=== PATIENT | female | born 1975 | race Caucasian/White ===

== ENCOUNTER 2016-10-04 11:29 | Emergency (ER) | payer OTHER ==
[~2016-10-04] VITALS: Ht 180.3 cm; Wt 104.5 kg
[2016-10-04] MEDS ORDERED: HYDR4TAB4 PO (11:44)
[2016-10-04 14:16] VITALS: BP 122/79
== END 2016-10-04 14:34 | disposition home or self-care (01) ==
LOC: MERGE 11:30 → EMS 11:30
DX: S89.91XA Unspecified injury of right lower leg, initial encounter (principal); F12.90 Cannabis use, unspecified, uncomplicated; F11.90 Opioid use, unspecified, uncomplicated; W01.0XXA Fall on same level from slipping, tripping and stumbling without subsequent striking against object, initial encounter; Y93.89 Activity, other specified; Y92.89 Other specified places as the place of occurrence of the external cause; Y99.8 Other external cause status
CPT/HCPCS: 99284

== ENCOUNTER 2016-10-30 17:09 | Emergency (ER) | payer OTHER ==
[~2016-10-30] VITALS: Ht 165.1 cm; Wt 104.5 kg
[~2016-10-30 17:09] MED LIST: HYDR4TAB4 PO
[2016-10-30 19:44] VITALS: BP 134/93
== END 2016-10-30 19:44 | disposition home or self-care (01) ==
LOC: MERGE 17:10 → EMS 17:10
DX: S83.91XA Sprain of unspecified site of right knee, initial encounter (principal); F11.90 Opioid use, unspecified, uncomplicated; F12.90 Cannabis use, unspecified, uncomplicated; F17.200 Nicotine dependence, unspecified, uncomplicated; X58.XXXA Exposure to other specified factors, initial encounter; Y93.89 Activity, other specified; Y92.89 Other specified places as the place of occurrence of the external cause; Y99.8 Other external cause status
CPT/HCPCS: 29505; 99284

== ENCOUNTER 2016-11-15 00:03 | Inpatient (IN) | payer MEDICARE, MEDICAID ==
[~2016-11-15] VITALS: Ht 175.3 cm; Wt 96.2 kg
[2016-11-15] MEDS ORDERED: HYDR2 PO (00:32)
[2016-11-15 00:46] LABS: BASOPHILS % (AUTO) 0.3 % (0.0-2.0); EOSINOPHILS % (AUTO) 0.5 % (1.0-6.0); HEMATOCRIT 47.8 % (36-46); HEMOGLOBIN 15.3 g/dL (12.0-16.0); LYMPHOCYTES # (AUTO) 1.7 K/uL (1.0-4.8); LYMPHOCYTES % (AUTO) 15.6 % (22.0-44.0); MEAN CORPUSCULAR HEMOGLOBIN 25.7 pg (26.0-34.0); MEAN CORPUSCULAR VOLUME 80 fL (80-100); MONOCYTES # (AUTO) 0.8 K/uL (0.1-1.0); MONOCYTES % (AUTO) 7.5 % (2.0-9.0); NEUTROPHILS # (AUTO) 8.4 K/uL (1.8-7.7); NEUTROPHILS % (AUTO) 76.1 % (40.0-70.0); PLATELET COUNT (AUTO) 244 K/uL (150-450); RED BLOOD CELL COUNT(AUTO) 5.97 MIL/uL (4.00-5.20); RED CELL DISTRIBUTION WIDTH 14.4 % (11.5-14.5)
[2016-11-15 00:48] LABS: ANION GAP 15 mmol/L (8-16); CALCIUM, TOTAL 9.1 mg/dL (8.8-10.5); CARBON DIOXIDE 26 mmol/L (22-29); CHLORIDE 101 mmol/L (98-107); CREATININE 0.98 mg/dL (0.60-1.30); GLOMERULAR FILTR. RATE CALC > 60 mL/min (>60); POTASSIUM 3.2 mmol/L (3.5-5.1); SODIUM SERUM 142 mmol/L (136-145); UREA NITROGEN, BLOOD 5 mg/dL (7-18)
[2016-11-15 00:54] LABS: ALANINE AMINOTRANSFERASE 15 U/L (12-78); ALBUMIN 4.1 g/dL (3.4-5.0); ASPARTATE AMINOTRANSFERASE 15 U/L (15-37); BILIRUBIN,TOTAL 0.6 mg/dL (0.1-1.0); TOTAL PROTEIN, SERUM 8.1 g/dL (6.4-8.2)
[2016-11-15] MEDS ORDERED: LORazepam 2 MG/ML VIAL IM ONE ×2 (01:30→03:15)
[2016-11-15] MEDS ORDERED: POTASSIUM CHLORIDE 20 MEQ ER TABLET PO ONE (01:30)
[2016-11-15] MEDS ORDERED: HALOPERIDOL LACTATE 5 MG/ML VIAL IM ONE (01:30)
[2016-11-15] MEDS ORDERED: PERTUSS(ACELL),DIPH,TET VAC/PF 0.5 ML VIAL IM ONE (02:00)
[2016-11-15] MEDS ORDERED: DiphenhydrAMINE HCL 50 MG/ML VIAL IM ONE (03:00)
[2016-11-15] MEDS ORDERED: ZOLPIDEM TARTRATE 10 MG TABLET PO PRN (03:45)
[2016-11-15 03:58] LABS: ADD UA MICROSCOPIC YES; APPEARANCE,URINE SLIGHTLY CLOUDY (CLEAR); GLUCOSE, URINE (UA) NEGATIVE (NEGATIVE); KETONES,URINE 40 mg/dL (NEGATIVE); LEUKOCYTE ESTERASE ,URINE TRACE (NEGATIVE); OCCULT BLOOD,URINE SMALL (NEGATIVE); PROTEIN,URINE SEE CONFIRM (NEGATIVE)
[2016-11-15 04:09] LABS: SULFOSALICYLIC ACID,URINE 2+ (Negative); WBC,URINE 0-2 /HPF (0-5)
[2016-11-15 04:10] LABS: FINE GRANULAR CASTS,URINE 0-2 /LPF (None Seen)
[2016-11-15] MEDS: HALOPERIDOL 5 MG TABLET PO PRN (08:40)
[2016-11-15] MEDS: LORazepam 2 MG TABLET PO PRN (08:40)
[2016-11-15] MEDS ORDERED: MAG HYDROX/AL HYDROX/SIMETH ES 30 ML SUSPENSION UDCUP PO PRN (09:00)
[2016-11-15] MEDS ORDERED: BACITRACIN 28.4 GM OINTMENT TP PRN (09:00)
[2016-11-15] MEDS ORDERED: ALBUTEROL SULFATE HFA 90 MCG/PUFF 8 GM INHALER IH PRN (09:00)
[2016-11-15] MEDS ORDERED: ACETAMINOPHEN 325 MG TABLET PO PRN (09:00)
[2016-11-15] MEDS ORDERED: CloNIDine HCL 0.1 MG TABLET PO PRN (09:00)
[2016-11-15] MEDS ORDERED: LOPERAMIDE HCL 2 MG CAPSULE PO PRN (09:00)
[2016-11-15] MEDS ORDERED: ONDANSETRON HCL 4 MG TABLET PO PRN (09:00)
[2016-11-15] MEDS ORDERED: PETROLATUM,WHITE 71 GM JELLY TP PRN (09:00)
[2016-11-15] MEDS ORDERED: MAGNESIUM HYDROXIDE SUSPENSION 30 ML UDCUP PO PRN (09:00)
[2016-11-15] MEDS ORDERED: CIPROFLOXACIN HCL 250 MG TABLET PO SCH (09:00)
[2016-11-15] MEDS ORDERED: BENZOCAINE/MENTHOL LOZENGE MM PRN (09:00)
[2016-11-15 10:00] VITALS: BP 125/71
[2016-11-15] MEDS ORDERED: HYDR4 PO (11:05)
[2016-11-15] MEDS: BACITRACIN 28.4 GM OINTMENT TP SCH ×2 (13:10→17:01)
[2016-11-15] MEDS: NYSTATIN 15 GM POWDER BOTTLE TP SCH ×2 (13:37→17:01)
[2016-11-15 16:07] VITALS: BP 123/99
[2016-11-15] MEDS: CIPROFLOXACIN HCL 500 MG TABLET PO SCH (17:00)
[2016-11-16 04:25] VITALS: BP 140/93
[2016-11-16] MEDS: IBUPROFEN 600 MG TABLET PO PRN (04:26)
[2016-11-16 08:42] VITALS: BP 138/80
[2016-11-16] MEDS: CIPROFLOXACIN HCL 500 MG TABLET PO SCH ×2 (09:42→15:53)
[2016-11-16] MEDS: BACITRACIN 28.4 GM OINTMENT TP SCH ×2 (09:42→15:54)
[2016-11-16] MEDS: NYSTATIN 15 GM POWDER BOTTLE TP SCH ×2 (09:42→15:53)
[2016-11-16 10:06] LABS: CHOL/HDL RATIO 4.1 (3.9-5.7); POTASSIUM 3.7 mmol/L (3.5-5.1); THYROID STIMULATING HORMONE 0.91 uIU/mL (0.36-3.74)
[2016-11-16] MEDS: LORazepam 2 MG TABLET PO PRN (15:54)
[2016-11-16] MEDS: HALOPERIDOL 5 MG TABLET PO PRN (15:54)
[2016-11-16] MEDS ORDERED: LOPERAMIDE HCL 2 MG CAPSULE PO PRN (16:00)
[2016-11-16] MEDS ORDERED: LOPERAMIDE HCL 2 MG CAPSULE PO ONE (16:00)
[2016-11-16 16:09] VITALS: BP 134/87
[2016-11-17 01:18] VITALS: BP 124/74
[2016-11-17] MEDS: IBUPROFEN 600 MG TABLET PO PRN (01:21)
[2016-11-17] MEDS: CIPROFLOXACIN HCL 500 MG TABLET PO SCH ×2 (08:24→17:23)
[2016-11-17 08:31] VITALS: BP 118/85
[2016-11-17] MEDS: NYSTATIN 15 GM POWDER BOTTLE TP SCH ×2 (09:04→16:27)
[2016-11-17] MEDS: BACITRACIN 28.4 GM OINTMENT TP SCH ×2 (09:04→16:27)
[2016-11-17 16:09] VITALS: BP 134/78
[2016-11-17] MEDS: LORazepam 2 MG TABLET PO PRN (20:37)
[2016-11-18 07:00] VITALS: BP 142/89
[2016-11-18] MEDS ORDERED: DIPHENOXYLATE/ATROP 2.5-0.025 MG TABLET PO PRN (08:00)
[2016-11-18 08:30] VITALS: BP 128/88
[2016-11-18] MEDS: NYSTATIN 15 GM POWDER BOTTLE TP SCH ×2 (08:33→17:27)
[2016-11-18] MEDS: CIPROFLOXACIN HCL 500 MG TABLET PO SCH ×2 (08:33→16:17)
[2016-11-18] MEDS: BACITRACIN 28.4 GM OINTMENT TP SCH ×2 (08:33→17:27)
[2016-11-18] MEDS: CHOLECALCIFEROL (VIT D3) 1,000 UNITS TABLET PO SCH (08:33)
[2016-11-18] MEDS: DIPHENOXYLATE/ATROP 2.5-0.025 MG TABLET PO SCH ×4 (08:55→21:12)
[2016-11-18 16:00] VITALS: BP 136/83
[2016-11-18 16:15] VITALS: BP 132/87
[2016-11-18] MEDS: IBUPROFEN 600 MG TABLET PO PRN (16:18)
[2016-11-18 17:18] VITALS: BP 130/80
[2016-11-18] MEDS: LORazepam 2 MG TABLET PO PRN (21:12)
[2016-11-19 06:07] VITALS: BP 133/79
[2016-11-19 08:29] VITALS: BP 112/70
[2016-11-19] MEDS: CIPROFLOXACIN HCL 500 MG TABLET PO SCH (09:54)
[2016-11-19] MEDS: CHOLECALCIFEROL (VIT D3) 1,000 UNITS TABLET PO SCH (09:54)
[2016-11-19] MEDS: BACITRACIN 28.4 GM OINTMENT TP SCH (09:54)
[2016-11-19] MEDS: DIPHENOXYLATE/ATROP 2.5-0.025 MG TABLET PO SCH ×2 (09:54→12:24)
[2016-11-19] MEDS: NYSTATIN 15 GM POWDER BOTTLE TP SCH (09:54)
[2016-11-19] MEDS ORDERED: VITAD1000 PO (13:51)
[2016-11-19] MEDS ORDERED: ALBU8HFA IH (13:51)
[2016-11-19] MEDS ORDERED: CIPR-278 PO (13:51)
== END 2016-11-19 15:21 | disposition home or self-care (01) | DRG 885 ==
LOC: EMS 00:03 → EDBD 00:03 → B3A 04:15
DX: F29 Unspecified psychosis not due to a substance or known physiological condition (principal); I42.9 Cardiomyopathy, unspecified; N39.0 Urinary tract infection, site not specified; G40.909 Epilepsy, unspecified, not intractable, without status epilepticus; F12.90 Cannabis use, unspecified, uncomplicated; E55.9 Vitamin D deficiency, unspecified; I49.9 Cardiac arrhythmia, unspecified; S01.81XA Laceration without foreign body of other part of head, initial encounter; E66.01 Morbid (severe) obesity due to excess calories; E87.6 Hypokalemia; B35.6 Tinea cruris; M54.5 Low back pain; F17.210 Nicotine dependence, cigarettes, uncomplicated; R03.0 Elevated blood-pressure reading, without diagnosis of hypertension; X58.XXXA Exposure to other specified factors, initial encounter; Y93.89 Activity, other specified; Y92.89 Other specified places as the place of occurrence of the external cause; Y99.8 Other external cause status; Z71.51 Drug abuse counseling and surveillance of drug abuser; Z71.6 Tobacco abuse counseling; Z98.51 Tubal ligation status; Z95.810 Presence of automatic (implantable) cardiac defibrillator; Z68.31 Body mass index [BMI] 31.0-31.9, adult; Z79.899 Other long term (current) drug therapy; Z78.1 Physical restraint status
CPT/HCPCS: 70450; 82306; 84132; 84443; 87045; 87086; 87147; 90471; 90715; 96372; 99291; G0480; J1200; J1630; J2060

== ENCOUNTER 2016-11-21 04:30 | Inpatient (IN) | payer OTHER ==
[~2016-11-21] VITALS: Ht 165.1 cm; Wt 98.0 kg
[~2016-11-21 04:30] MED LIST changes: +ALBU8HFA IH; +CIPR-278 PO; -HYDR4TAB4 PO; +VITAD1000 PO
[2016-11-21 07:19] LABS: BASOPHILS % (AUTO) 0.5 % (0.0-2.0); EOSINOPHILS % (AUTO) 1.4 % (1.0-6.0); HEMATOCRIT 47.1 % (36-46); HEMOGLOBIN 15.1 g/dL (12.0-16.0); LYMPHOCYTES # (AUTO) 2.4 K/uL (1.0-4.8); LYMPHOCYTES % (AUTO) 22.5 % (22.0-44.0); MEAN CORPUSCULAR HEMOGLOBIN 25.6 pg (26.0-34.0); MEAN CORPUSCULAR VOLUME 80 fL (80-100); MONOCYTES # (AUTO) 0.8 K/uL (0.1-1.0); MONOCYTES % (AUTO) 7.3 % (2.0-9.0); NEUTROPHILS # (AUTO) 7.2 K/uL (1.8-7.7); NEUTROPHILS % (AUTO) 68.3 % (40.0-70.0); PLATELET COUNT (AUTO) 288 K/uL (150-450); RED BLOOD CELL COUNT(AUTO) 5.88 MIL/uL (4.00-5.20); RED CELL DISTRIBUTION WIDTH 14.4 % (11.5-14.5); WHITE BLOOD COUNT (AUTO) 10.6 K/uL (4.5-11.0)
[2016-11-21 07:30] LABS: ANION GAP 9 mmol/L (8-16); CALCIUM, TOTAL 9.3 mg/dL (8.8-10.5); CARBON DIOXIDE 28 mmol/L (22-29); CHLORIDE 103 mmol/L (98-107); CREATININE 0.94 mg/dL (0.60-1.30); GLOMERULAR FILTR. RATE CALC > 60 mL/min (>60); POTASSIUM 3.4 mmol/L (3.5-5.1); SODIUM SERUM 140 mmol/L (136-145); UREA NITROGEN, BLOOD 12 mg/dL (7-18)
[2016-11-21 07:41] LABS: B-TYPE NATRIURETIC PEPTIDE 84 pg/mL (0-100)
[2016-11-21 07:58] LABS: ALANINE AMINOTRANSFERASE 15 U/L (12-78); ALBUMIN 4.1 g/dL (3.4-5.0); ASPARTATE AMINOTRANSFERASE 15 U/L (15-37); BILIRUBIN,TOTAL 0.4 mg/dL (0.1-1.0); CREATINE KINASE MB 0.6 ng/mL (0-5); CREATINE KINASE, TOTAL 120 U/L (26-192); TOTAL PROTEIN, SERUM 8.2 g/dL (6.4-8.2)
[2016-11-21 08:02] LABS: APPEARANCE,URINE CLEAR (CLEAR); GLUCOSE, URINE (UA) NEGATIVE (NEGATIVE); KETONES,URINE 15 mg/dL (NEGATIVE); LEUKOCYTE ESTERASE ,URINE NEGATIVE (NEGATIVE); OCCULT BLOOD,URINE NEGATIVE (NEGATIVE); PROTEIN,URINE NEGATIVE (NEGATIVE)
[2016-11-21] MEDS ORDERED: LORazepam 2 MG/ML VIAL ONE (08:09)
[2016-11-21] MEDS ORDERED: DiphenhydrAMINE HCL 50 MG/ML VIAL ONE (08:09)
[2016-11-21] MEDS ORDERED: HALOPERIDOL LACTATE 5 MG/ML VIAL ONE (08:09)
[2016-11-21 08:10] LABS: ADD UA MICROSCOPIC NO
[2016-11-21] MEDS ORDERED: DiphenhydrAMINE HCL 50 MG/ML VIAL IM ONE (08:15)
[2016-11-21] MEDS ORDERED: LORazepam 2 MG/ML VIAL IM ONE (08:15)
[2016-11-21] MEDS ORDERED: HALOPERIDOL LACTATE 5 MG/ML VIAL IM ONE (08:15)
[2016-11-21] MEDS ORDERED: HydrALAZINE HCL 20 MG/ML VIAL IVP ONE (08:45)
[2016-11-21] MEDS ORDERED: HYDROCHLOROTHIAZIDE 25 MG TABLET PO ONE (10:30)
[2016-11-21] MEDS ORDERED: ALBUTEROL SULFATE 2.5 MG/0.5 ML NEB SOLUTION NEB PRN (11:30)
[2016-11-21 13:32] VITALS: BP 149/96
[2016-11-21] MEDS ORDERED: PNEUMOCOCCAL VACCINE POLYVALENT 0.5 ML VIAL [PPSV23] IM ONE (14:45)
[2016-11-21] MEDS: HEPARIN SODIUM,PORCINE 5,000 UNITS/ML VIAL SQ SCH (15:42)
[2016-11-21 16:11] VITALS: BP 154/108
[2016-11-21] MEDS: ACETAMINOPHEN 325 MG TABLET PO PRN (16:27)
[2016-11-21 20:05] VITALS: BP 114/59
[2016-11-21 20:21] VITALS: BP 142/111
[2016-11-21] MEDS ORDERED: LORazepam 2 MG TABLET PO PRN (21:15)
[2016-11-21] MEDS ORDERED: HALOPERIDOL LACTATE 5 MG/ML VIAL IM PRN ×2 (21:15→21:30)
[2016-11-21] MEDS ORDERED: CloNIDine HCL 0.1 MG TABLET PO PRN (21:15)
[2016-11-21] MEDS ORDERED: CloNIDine HCL 0.1 MG TABLET ONE (21:18)
[2016-11-21] MEDS ORDERED: LORazepam 1 MG TABLET ONE (21:19)
[2016-11-21] MEDS: LORazepam 2 MG TABLET PO PRN (21:22)
[2016-11-21 23:52] VITALS: BP 136/75
[2016-11-22 04:33] VITALS: BP 134/70
[2016-11-22 07:18] VITALS: BP 143/94
[2016-11-22] MEDS: AmLODIPine BESYLATE 10 MG TABLET PO SCH (08:19)
[2016-11-22] MEDS: PANTOPRAZOLE SODIUM 40 MG DR TABLET PO SCH (08:19)
[2016-11-22] MEDS: HEPARIN SODIUM,PORCINE 5,000 UNITS/ML VIAL SQ SCH ×3 (08:20→15:27)
[2016-11-22 11:13] VITALS: BP 156/93
[2016-11-22 13:06] LABS: BASOPHILS % (AUTO) 0.6 % (0.0-2.0); EOSINOPHILS % (AUTO) 1.4 % (1.0-6.0); HEMATOCRIT 49.6 % (36-46); LYMPHOCYTES # (AUTO) 2.3 K/uL (1.0-4.8); LYMPHOCYTES % (AUTO) 27.3 % (22.0-44.0); MEAN CORPUSCULAR HEMOGLOBIN 25.6 pg (26.0-34.0); MEAN CORPUSCULAR HGB CONC 32.2 G/dL (31.0-37.0); MEAN CORPUSCULAR VOLUME 79 fL (80-100); MONOCYTES # (AUTO) 0.8 K/uL (0.1-1.0); MONOCYTES % (AUTO) 9.5 % (2.0-9.0); NEUTROPHILS # (AUTO) 5.1 K/uL (1.8-7.7); NEUTROPHILS % (AUTO) 61.2 % (40.0-70.0); PLATELET COUNT (AUTO) 296 K/uL (150-450); RED BLOOD CELL COUNT(AUTO) 6.24 MIL/uL (4.00-5.20); RED CELL DISTRIBUTION WIDTH 14.7 % (11.5-14.5); WHITE BLOOD COUNT (AUTO) 8.4 K/uL (4.5-11.0)
[2016-11-22 13:31] LABS: CALCIUM, TOTAL 9.4 mg/dL (8.8-10.5); CREATININE 1.03 mg/dL (0.60-1.30); MAGNESIUM 1.7 mg/dL (1.80-2.40); POTASSIUM 3.9 mmol/L (3.5-5.1)
[2016-11-22] MEDS: ACETAMINOPHEN 325 MG TABLET PO PRN (14:01)
[2016-11-22 15:22] VITALS: BP 119/82
[2016-11-22] MEDS: OxyCODONE HCL/ACETAMINOPHEN 5-325 MG TABLET PO PRN ×2 (15:27→21:19)
[2016-11-22] MEDS: LORazepam 2 MG TABLET PO PRN (18:43)
[2016-11-22] MEDS ORDERED: HydrALAZINE HCL 20 MG/ML VIAL IVP PRN (19:00)
[2016-11-22 20:31] VITALS: BP 115/74
[2016-11-22] MEDS: METOPROLOL SUCCINATE 25 MG ER TABLET PO SCH (21:19)
[2016-11-22] MEDS ORDERED: MAGNESIUM SULFATE 2 GM in DEXTROSE 5%-WATER 50 ML IV PRN (22:00)
[2016-11-22] MEDS ORDERED: MAGNESIUM OXIDE 400 MG TABLET PO PRN (22:00)
[2016-11-22] MEDS ORDERED: MAGNESIUM SULFATE 4 GM/WATER 100 ML IV PRN (22:00)
[2016-11-23] VITALS (7 sets, daily range): BP systolic 108–152; BP diastolic 62–90
[2016-11-23] MEDS: HEPARIN SODIUM,PORCINE 5,000 UNITS/ML VIAL SQ SCH ×4 (00:02→23:41)
[2016-11-23] MEDS: OxyCODONE HCL/ACETAMINOPHEN 5-325 MG TABLET PO PRN ×4 (01:20→20:00)
[2016-11-23] MEDS: METOPROLOL SUCCINATE 25 MG ER TABLET PO SCH ×2 (07:57→20:01)
[2016-11-23] MEDS: PANTOPRAZOLE SODIUM 40 MG DR TABLET PO SCH (07:57)
[2016-11-23] MEDS: AmLODIPine BESYLATE 10 MG TABLET PO SCH (07:57)
[2016-11-23] MEDS: ASPIRIN 81 MG CHEWABLE TABLET PO SCH (15:44)
[2016-11-23] MEDS: LORazepam 2 MG TABLET PO PRN (20:00)
[2016-11-23] MEDS: ACETAMINOPHEN 325 MG TABLET PO PRN (22:38)
[2016-11-24 04:00] VITALS: BP 120/87
[2016-11-24] MEDS: OxyCODONE HCL/ACETAMINOPHEN 5-325 MG TABLET PO PRN ×3 (04:01→14:50)
[2016-11-24 07:12] LABS: BASOPHILS # (AUTO) 0.07 K/uL (0.00-0.20); BASOPHILS % (AUTO) 1.1 % (0.0-2.0); EOSINOPHILS # (AUTO) 0.14 K/uL (0.00-0.70); EOSINOPHILS % (AUTO) 2.13 % (1.0-6.0); HEMATOCRIT 46.7 % (36-46); HEMOGLOBIN 15.1 g/dL (12.0-16.0); LYMPHOCYTES # (AUTO) 2.6 K/uL (1.0-4.8); LYMPHOCYTES % (AUTO) 39.4 % (22.0-44.0); MEAN CORPUSCULAR HEMOGLOBIN 25.6 pg (26.0-34.0); MEAN CORPUSCULAR HGB CONC 32.2 G/dL (31.0-37.0); MEAN CORPUSCULAR VOLUME 79 fL (80-100); MONOCYTES # (AUTO) 0.7 K/uL (0.1-1.0); MONOCYTES % (AUTO) 9.9 % (2.0-9.0); NEUTROPHILS # (AUTO) 3.1 K/uL (1.8-7.7); NEUTROPHILS % (AUTO) 47.5 % (40.0-70.0); PLATELET COUNT (AUTO) 258 K/uL (150-450); RED CELL DISTRIBUTION WIDTH 14.7 % (11.5-14.5); WHITE BLOOD COUNT (AUTO) 6.6 K/uL (4.5-11.0)
[2016-11-24 07:18] VITALS: BP 139/82
[2016-11-24 07:21] LABS: ANION GAP 9 mmol/L (8-16); CALCIUM, TOTAL 9.1 mg/dL (8.8-10.5); CARBON DIOXIDE 29 mmol/L (22-29); CHLORIDE 99 mmol/L (98-107); CREATININE 0.92 mg/dL (0.60-1.30); GLOMERULAR FILTR. RATE CALC > 60 mL/min (>60); POTASSIUM 3.6 mmol/L (3.5-5.1); SODIUM SERUM 137 mmol/L (136-145); UREA NITROGEN, BLOOD 12 mg/dL (7-18)
[2016-11-24] MEDS: METOPROLOL SUCCINATE 25 MG ER TABLET PO SCH (08:21)
[2016-11-24] MEDS: ASPIRIN 81 MG CHEWABLE TABLET PO SCH (08:21)
[2016-11-24] MEDS: AmLODIPine BESYLATE 10 MG TABLET PO SCH (08:21)
[2016-11-24] MEDS: PANTOPRAZOLE SODIUM 40 MG DR TABLET PO SCH (08:21)
[2016-11-24] MEDS: HEPARIN SODIUM,PORCINE 5,000 UNITS/ML VIAL SQ SCH ×2 (08:21→16:00)
[2016-11-24 11:49] VITALS: BP 126/86
[2016-11-24] MEDS ORDERED: AMLO-512 PO (15:48)
[2016-11-24] MEDS ORDERED: METO-323 PO (15:48)
[2016-11-24] MEDS ORDERED: FURO20 PO ×2 (15:48→15:49)
== END 2016-11-24 14:35 | disposition home or self-care (01) | DRG 78 ==
LOC: EMS 06:39 → 5N 11:59 → 5S 23:10
PROVIDERS: ADMIT Hospitalist; ATTEND Hospitalist
DX: I67.4 Hypertensive encephalopathy (principal); I20.0 Unstable angina; I50.22 Chronic systolic (congestive) heart failure; I42.9 Cardiomyopathy, unspecified; I16.0 Hypertensive urgency; F29 Unspecified psychosis not due to a substance or known physiological condition; K21.9 Gastro-esophageal reflux disease without esophagitis; F20.9 Schizophrenia, unspecified; F17.210 Nicotine dependence, cigarettes, uncomplicated; F12.90 Cannabis use, unspecified, uncomplicated; G40.909 Epilepsy, unspecified, not intractable, without status epilepticus; F31.9 Bipolar disorder, unspecified; I11.0 Hypertensive heart disease with heart failure; Z79.82 Long term (current) use of aspirin; Z95.0 Presence of cardiac pacemaker; Z98.51 Tubal ligation status; Z95.810 Presence of automatic (implantable) cardiac defibrillator; Z28.21 Immunization not carried out because of patient refusal; Z87.828 Personal history of other (healed) physical injury and trauma
CPT/HCPCS: 70450; 83735; 87081; 93005; 93306; 96372; 96374; 99285; G0480; J0360; J1200; J1630; J1644; J2060

== ENCOUNTER 2016-11-28 14:35 | Inpatient (IN) | payer MEDICARE, MEDICAID ==
[~2016-11-28] VITALS: Ht 175.3 cm; Wt 98.3 kg
[~2016-11-28 14:35] MED LIST changes: +AMLO-512 PO; -CIPR-278 PO; +FURO20 PO; +HYDR4TAB4 PO; +METO-323 PO
[2016-11-28 15:12] LABS: BASOPHILS % (AUTO) 0.4 % (0.0-2.0); EOSINOPHILS % (AUTO) 1.4 % (1.0-6.0); HEMATOCRIT 48.4 % (36-46); HEMOGLOBIN 15.6 g/dL (12.0-16.0); LYMPHOCYTES # (AUTO) 2.2 K/uL (1.0-4.8); LYMPHOCYTES % (AUTO) 20.4 % (22.0-44.0); MEAN CORPUSCULAR HEMOGLOBIN 25.8 pg (26.0-34.0); MEAN CORPUSCULAR HGB CONC 32.2 G/dL (31.0-37.0); MEAN CORPUSCULAR VOLUME 80 fL (80-100); MONOCYTES # (AUTO) 0.9 K/uL (0.1-1.0); MONOCYTES % (AUTO) 8.5 % (2.0-9.0); NEUTROPHILS # (AUTO) 7.4 K/uL (1.8-7.7); NEUTROPHILS % (AUTO) 69.3 % (40.0-70.0); PLATELET COUNT (AUTO) 282 K/uL (150-450); RED BLOOD CELL COUNT(AUTO) 6.05 MIL/uL (4.00-5.20); RED CELL DISTRIBUTION WIDTH 14.5 % (11.5-14.5); WHITE BLOOD COUNT (AUTO) 10.6 K/uL (4.5-11.0)
[2016-11-28] MEDS ORDERED: IPRA4AER IH (15:26)
[2016-11-28 15:30] LABS: ANION GAP 8 mmol/L (8-16); CALCIUM, TOTAL 9.5 mg/dL (8.8-10.5); CARBON DIOXIDE 33 mmol/L (22-29); CHLORIDE 101 mmol/L (98-107); GLOMERULAR FILTR. RATE CALC > 60 mL/min (>60); POTASSIUM 3.8 mmol/L (3.5-5.1); SODIUM SERUM 142 mmol/L (136-145); UREA NITROGEN, BLOOD 10 mg/dL (7-18)
[2016-11-28 15:43] LABS: ALANINE AMINOTRANSFERASE 37 U/L (12-78); ALBUMIN 4.1 g/dL (3.4-5.0); ASPARTATE AMINOTRANSFERASE 28 U/L (15-37); BILIRUBIN,TOTAL 0.5 mg/dL (0.1-1.0); TOTAL PROTEIN, SERUM 8.2 g/dL (6.4-8.2)
[2016-11-28] MEDS ORDERED: HALOPERIDOL 5 MG TABLET PO ONE (17:45)
[2016-11-28] MEDS ORDERED: LORazepam 2 MG TABLET PO ONE (17:45)
[2016-11-28] MEDS ORDERED: HALOPERIDOL 5 MG TABLET PO PRN (18:00)
[2016-11-29 01:02] VITALS: BP 113/76
[2016-11-29] MEDS ORDERED: PNEUMOCOCCAL VACCINE POLYVALENT 0.5 ML VIAL [PPSV23] IM ONE (01:45)
[2016-11-29] MEDS ORDERED: ALBUTEROL SULFATE HFA 90 MCG/PUFF 8 GM INHALER IH PRN (08:30)
[2016-11-29] MEDS ORDERED: ALBUTEROL SULFATE/IPRATROPIUM 100-20 MCG/SPRAY 4 GM INHALER IH PRN (08:30)
[2016-11-29] MEDS: AmLODIPine BESYLATE 10 MG TABLET PO SCH ×2 (09:00→17:34)
[2016-11-29] MEDS: CHOLECALCIFEROL (VIT D3) 1,000 UNITS TABLET PO SCH (09:59)
[2016-11-29] MEDS: FUROSEMIDE 20 MG TABLET PO SCH (09:59)
[2016-11-29] MEDS: METOPROLOL SUCCINATE 25 MG ER TABLET PO SCH ×2 (09:59→17:34)
[2016-11-29 10:04] VITALS: BP 120/85
[2016-11-29 10:25] LABS: ALANINE AMINOTRANSFERASE 27 U/L (12-78); ANION GAP 9 mmol/L (8-16); ASPARTATE AMINOTRANSFERASE 22 U/L (15-37); BILIRUBIN,TOTAL 0.5 mg/dL (0.1-1.0); CALCIUM, TOTAL 9.2 mg/dL (8.8-10.5); CARBON DIOXIDE 29 mmol/L (22-29); CHLORIDE 103 mmol/L (98-107); CREATININE 0.79 mg/dL (0.60-1.30); GLOMERULAR FILTR. RATE CALC > 60 mL/min (>60); POTASSIUM 3.7 mmol/L (3.5-5.1); SODIUM SERUM 141 mmol/L (136-145); TOTAL PROTEIN, SERUM 7.7 g/dL (6.4-8.2); UREA NITROGEN, BLOOD 16 mg/dL (7-18)
[2016-11-29 11:31] VITALS: BP 122/82
[2016-11-29] MEDS: IBUPROFEN 600 MG TABLET PO PRN ×2 (11:32→19:03)
[2016-11-29 12:32] VITALS: BP 123/80
[2016-11-29 16:38] VITALS: BP 131/74
[2016-11-29] MEDS: OLANZapine 5 MG RAPDIS TABLET PO SCH (17:34)
[2016-11-29 19:00] VITALS: BP 112/64
[2016-11-30 00:57] VITALS: BP 119/75
[2016-11-30] MEDS: LORazepam 2 MG TABLET PO PRN ×3 (02:06→17:12)
[2016-11-30] MEDS: METOPROLOL SUCCINATE 25 MG ER TABLET PO SCH ×2 (08:49→17:13)
[2016-11-30] MEDS: FUROSEMIDE 20 MG TABLET PO SCH (08:49)
[2016-11-30] MEDS: OLANZapine 5 MG RAPDIS TABLET PO SCH ×2 (08:49→17:12)
[2016-11-30] MEDS: CHOLECALCIFEROL (VIT D3) 1,000 UNITS TABLET PO SCH (08:49)
[2016-11-30] MEDS: AmLODIPine BESYLATE 10 MG TABLET PO SCH ×2 (08:49→17:12)
[2016-11-30 09:11] VITALS: BP 138/88
[2016-11-30 16:00] VITALS: BP 114/70
[2016-12-01 05:21] VITALS: BP 119/70
[2016-12-01 08:40] VITALS: BP 131/80
[2016-12-01] MEDS: FUROSEMIDE 20 MG TABLET PO SCH (09:23)
[2016-12-01] MEDS: CHOLECALCIFEROL (VIT D3) 1,000 UNITS TABLET PO SCH (09:24)
[2016-12-01] MEDS: METOPROLOL SUCCINATE 25 MG ER TABLET PO SCH ×2 (09:24→16:32)
[2016-12-01] MEDS: OLANZapine 5 MG RAPDIS TABLET PO SCH ×2 (09:24→16:33)
[2016-12-01] MEDS: AmLODIPine BESYLATE 10 MG TABLET PO SCH ×2 (09:24→16:32)
[2016-12-01] MEDS: LORazepam 2 MG TABLET PO PRN (12:40)
[2016-12-01 16:13] VITALS: BP 137/87
[2016-12-02 01:04] VITALS: BP 116/90
[2016-12-02] MEDS: ZOLPIDEM TARTRATE 10 MG TABLET PO PRN ×2 (01:29→21:02)
[2016-12-02 08:23] VITALS: BP 138/80
[2016-12-02] MEDS: CHOLECALCIFEROL (VIT D3) 1,000 UNITS TABLET PO SCH (08:47)
[2016-12-02] MEDS: FUROSEMIDE 20 MG TABLET PO SCH (08:47)
[2016-12-02] MEDS: AmLODIPine BESYLATE 10 MG TABLET PO SCH ×2 (08:47→16:38)
[2016-12-02] MEDS: OLANZapine 5 MG RAPDIS TABLET PO SCH ×2 (08:47→17:02)
[2016-12-02] MEDS: METOPROLOL SUCCINATE 25 MG ER TABLET PO SCH ×2 (08:47→16:38)
[2016-12-02 16:07] VITALS: BP 111/82
[2016-12-02 16:37] VITALS: BP 134/78
[2016-12-02 18:30] VITALS: BP 116/74
[2016-12-02] MEDS: IBUPROFEN 600 MG TABLET PO PRN (18:32)
[2016-12-03 00:01] VITALS: BP 120/75
[2016-12-03] MEDS: LORazepam 2 MG TABLET PO PRN ×2 (00:23→11:49)
[2016-12-03 08:28] VITALS: BP 123/78
[2016-12-03] MEDS: CHOLECALCIFEROL (VIT D3) 1,000 UNITS TABLET PO SCH (08:54)
[2016-12-03] MEDS: OLANZapine 5 MG RAPDIS TABLET PO SCH ×2 (08:54→17:14)
[2016-12-03] MEDS: METOPROLOL SUCCINATE 25 MG ER TABLET PO SCH ×2 (08:55→17:14)
[2016-12-03] MEDS: FUROSEMIDE 20 MG TABLET PO SCH (08:55)
[2016-12-03 12:10] VITALS: BP 126/86
[2016-12-03] MEDS: IBUPROFEN 600 MG TABLET PO PRN (12:10)
[2016-12-03 16:04] VITALS: BP 119/75
[2016-12-04 00:34] VITALS: BP 117/79
[2016-12-04] MEDS: ZOLPIDEM TARTRATE 10 MG TABLET PO PRN ×2 (00:37→20:47)
[2016-12-04] MEDS: IBUPROFEN 600 MG TABLET PO PRN ×2 (00:37→09:44)
[2016-12-04 08:25] VITALS: BP 141/85
[2016-12-04] MEDS: CHOLECALCIFEROL (VIT D3) 1,000 UNITS TABLET PO SCH (08:43)
[2016-12-04] MEDS: FUROSEMIDE 20 MG TABLET PO SCH (08:43)
[2016-12-04] MEDS: OLANZapine 5 MG RAPDIS TABLET PO SCH (08:43)
[2016-12-04] MEDS: METOPROLOL SUCCINATE 25 MG ER TABLET PO SCH ×2 (08:43→16:38)
[2016-12-04 16:10] VITALS: BP 140/88
[2016-12-04] MEDS: OLANZapine 7.5 MG TABLET PO SCH (16:38)
[2016-12-05 04:33] VITALS: BP 127/90
[2016-12-05] MEDS: IBUPROFEN 600 MG TABLET PO PRN (04:53)
[2016-12-05] MEDS: CHOLECALCIFEROL (VIT D3) 1,000 UNITS TABLET PO SCH (08:17)
[2016-12-05] MEDS: OLANZapine 7.5 MG TABLET PO SCH ×2 (08:17→16:34)
[2016-12-05] MEDS: LORazepam 2 MG TABLET PO PRN (08:20)
[2016-12-05 08:25] VITALS: BP 125/94
[2016-12-05] MEDS: METOPROLOL SUCCINATE 25 MG ER TABLET PO SCH ×2 (09:00→16:34)
[2016-12-05] MEDS: FUROSEMIDE 20 MG TABLET PO SCH (09:00)
[2016-12-05 09:50] VITALS: BP 123/80
[2016-12-05 16:06] VITALS: BP 135/97
[2016-12-05 19:13] VITALS: BP 121/73
[2016-12-05] MEDS: ZOLPIDEM TARTRATE 10 MG TABLET PO PRN (20:51)
[2016-12-06] VITALS (8 sets, daily range): BP systolic 115–133; BP diastolic 68–92
[2016-12-06] MEDS: IBUPROFEN 600 MG TABLET PO PRN ×3 (02:07→19:06)
[2016-12-06] MEDS: METOPROLOL SUCCINATE 25 MG ER TABLET PO SCH ×2 (08:27→16:16)
[2016-12-06] MEDS: FUROSEMIDE 20 MG TABLET PO SCH (08:27)
[2016-12-06] MEDS: OLANZapine 7.5 MG TABLET PO SCH ×2 (08:27→16:16)
[2016-12-06] MEDS: CHOLECALCIFEROL (VIT D3) 1,000 UNITS TABLET PO SCH (08:28)
[2016-12-06] MEDS: ZOLPIDEM TARTRATE 10 MG TABLET PO PRN (21:15)
[2016-12-07 06:19] VITALS: BP 138/92
[2016-12-07 08:08] VITALS: BP 128/83
[2016-12-07] MEDS: FUROSEMIDE 20 MG TABLET PO SCH (08:41)
[2016-12-07] MEDS: OLANZapine 7.5 MG TABLET PO SCH ×2 (08:41→16:38)
[2016-12-07] MEDS: CHOLECALCIFEROL (VIT D3) 1,000 UNITS TABLET PO SCH (08:41)
[2016-12-07] MEDS: METOPROLOL SUCCINATE 25 MG ER TABLET PO SCH ×2 (08:41→16:38)
[2016-12-07 16:00] VITALS: BP 124/86
[2016-12-07] MEDS: IBUPROFEN 600 MG TABLET PO PRN (18:40)
[2016-12-07 18:41] VITALS: BP 125/82
[2016-12-07] MEDS: ZOLPIDEM TARTRATE 10 MG TABLET PO PRN (21:04)
[2016-12-08 06:07] VITALS: BP 118/81
[2016-12-08] MEDS: LORazepam 2 MG TABLET PO PRN (06:08)
[2016-12-08] MEDS: IBUPROFEN 600 MG TABLET PO PRN ×2 (06:09→14:21)
[2016-12-08 08:25] VITALS: BP 122/87
[2016-12-08] MEDS: FUROSEMIDE 20 MG TABLET PO SCH (08:39)
[2016-12-08] MEDS: CHOLECALCIFEROL (VIT D3) 1,000 UNITS TABLET PO SCH (08:39)
[2016-12-08] MEDS: METOPROLOL SUCCINATE 25 MG ER TABLET PO SCH ×2 (08:39→16:19)
[2016-12-08] MEDS: OLANZapine 7.5 MG TABLET PO SCH ×2 (08:39→16:00)
[2016-12-08 14:21] VITALS: BP 119/88
[2016-12-08 16:07] VITALS: BP 119/87
[2016-12-09 04:41] VITALS: BP 127/99
[2016-12-09] MEDS: BENZOCAINE 10% 7 GM GEL TP PRN ×2 (05:16→13:40)
[2016-12-09] MEDS: ACETAMINOPHEN 325 MG TABLET PO PRN (05:17)
[2016-12-09 08:28] VITALS: BP 126/96
[2016-12-09] MEDS: FUROSEMIDE 20 MG TABLET PO SCH ×2 (09:00→16:31)
[2016-12-09] MEDS: CHOLECALCIFEROL (VIT D3) 1,000 UNITS TABLET PO SCH (09:03)
[2016-12-09] MEDS: OLANZapine 7.5 MG TABLET PO SCH ×2 (09:03→16:31)
[2016-12-09 09:10] VITALS: BP 132/94
[2016-12-09] MEDS: METOPROLOL SUCCINATE 25 MG ER TABLET PO SCH ×2 (09:10→16:31)
[2016-12-09] MEDS: IBUPROFEN 600 MG TABLET PO PRN (09:46)
[2016-12-09 16:05] VITALS: BP 131/85
[2016-12-10 00:05] VITALS: BP 133/91
[2016-12-10] MEDS: ZOLPIDEM TARTRATE 10 MG TABLET PO PRN (00:15)
[2016-12-10] MEDS: BENZOCAINE 10% 7 GM GEL TP PRN (00:15)
[2016-12-10] MEDS: METOPROLOL SUCCINATE 25 MG ER TABLET PO SCH ×2 (08:18→17:42)
[2016-12-10] MEDS: OLANZapine 7.5 MG TABLET PO SCH ×2 (08:18→17:42)
[2016-12-10] MEDS: CHOLECALCIFEROL (VIT D3) 1,000 UNITS TABLET PO SCH (08:18)
[2016-12-10] MEDS: LORazepam 2 MG TABLET PO PRN (08:18)
[2016-12-10] MEDS: IBUPROFEN 600 MG TABLET PO PRN (08:19)
[2016-12-10 08:24] VITALS: BP 147/83
[2016-12-10 09:20] VITALS: BP 132/84
[2016-12-10] MEDS ORDERED: BENZOCAINE/MENTHOL LOZENGE PO PRN (14:30)
[2016-12-10 17:42] VITALS: BP 133/85
[2016-12-10] MEDS: FUROSEMIDE 20 MG TABLET PO SCH (17:42)
[2016-12-11 05:05] VITALS: BP 132/89
[2016-12-11] MEDS: BENZOCAINE 10% 7 GM GEL TP PRN (05:12)
[2016-12-11 08:45] VITALS: BP 139/92
[2016-12-11] MEDS: OLANZapine 7.5 MG TABLET PO SCH ×2 (08:46→16:45)
[2016-12-11] MEDS: CHOLECALCIFEROL (VIT D3) 1,000 UNITS TABLET PO SCH (08:46)
[2016-12-11] MEDS: METOPROLOL SUCCINATE 25 MG ER TABLET PO SCH ×2 (08:47→16:45)
[2016-12-11] MEDS: ACETAMINOPHEN 325 MG TABLET PO PRN (08:55)
[2016-12-11] MEDS: LORazepam 2 MG TABLET PO PRN (08:56)
[2016-12-11 12:42] VITALS: BP 125/86
[2016-12-11 16:08] VITALS: BP 145/88
[2016-12-11] MEDS: IBUPROFEN 600 MG TABLET PO PRN (16:44)
[2016-12-11] MEDS: FUROSEMIDE 20 MG TABLET PO SCH (16:45)
[2016-12-12 04:56] VITALS: BP 143/93
[2016-12-12] MEDS ORDERED: VITAD1000 PO (05:20)
[2016-12-12] MEDS ORDERED: FURO20 PO (05:20)
[2016-12-12] MEDS ORDERED: METO-323 PO (05:20)
[2016-12-12] MEDS ORDERED: OLAN7.5T2 PO (05:20)
[2016-12-12] MEDS: CHOLECALCIFEROL (VIT D3) 1,000 UNITS TABLET PO SCH (08:44)
[2016-12-12] MEDS: OLANZapine 7.5 MG TABLET PO SCH (08:44)
[2016-12-12] MEDS: METOPROLOL SUCCINATE 25 MG ER TABLET PO SCH (08:44)
[2016-12-12 08:56] VITALS: BP 136/96
== END 2016-12-12 09:40 | disposition home or self-care (01) | DRG 885 ==
LOC: EMS 14:36 → B3A 19:30 → B2S 19:30 → B2X 12-01 19:13
PROVIDERS: ADMIT Psychiatry & Neurology Child & Adolescent Psychiatry
DX: F25.0 Schizoaffective disorder, bipolar type (principal); I42.9 Cardiomyopathy, unspecified; F12.90 Cannabis use, unspecified, uncomplicated; G40.909 Epilepsy, unspecified, not intractable, without status epilepticus; I25.10 Atherosclerotic heart disease of native coronary artery without angina pectoris; I50.9 Heart failure, unspecified; J44.9 Chronic obstructive pulmonary disease, unspecified; M19.90 Unspecified osteoarthritis, unspecified site; Z91.018 Allergy to other foods; Z28.21 Immunization not carried out because of patient refusal; Z79.899 Other long term (current) drug therapy; Z87.828 Personal history of other (healed) physical injury and trauma; Z71.51 Drug abuse counseling and surveillance of drug abuser; Z98.51 Tubal ligation status; Z95.810 Presence of automatic (implantable) cardiac defibrillator
CPT/HCPCS: 87081; 93005; 99285; G0480